=== PATIENT | female | born 1990 | race Caucasian/White ===

== ENCOUNTER 2016-12-06 13:44 | Emergency (ER) | payer OTHER ==
[~2016-12-06] VITALS: Ht 157.5 cm; Wt 78.8 kg
[2016-12-06] MEDS ORDERED: PREDNISONE50 MG PO (14:32)
[2016-12-06 14:45] VITALS: BP 137/74
== END 2016-12-06 14:53 | disposition home or self-care (01) ==
LOC: EME 13:44
DX: O99.712 Diseases of the skin and subcutaneous tissue complicating pregnancy, second trimester (principal); L27.2 Dermatitis due to ingested food; O99.342 Other mental disorders complicating pregnancy, second trimester; F32.9 Major depressive disorder, single episode, unspecified; F41.9 Anxiety disorder, unspecified; Z3A.20 20 weeks gestation of pregnancy; Z87.891 Personal history of nicotine dependence
CPT/HCPCS: 99281; 99284

== ENCOUNTER 2016-12-17 21:00 | Emergency (ER) | payer OTHER ==
[~2016-12-17] VITALS: Ht 157.5 cm; Wt 79.6 kg
[~2016-12-17 21:00] MED LIST: PREDNISONE50 MG PO
[2016-12-17] MEDS ORDERED: ZITHROMAX250 MG PO (23:03)
[2016-12-17] MEDS ORDERED: DELTASONE20 M1 PO (23:03)
[2016-12-17] MEDS ORDERED: PROAIR HFA8.5 GM IH (23:03)
[2016-12-17 23:15] VITALS: BP 119/90
== END 2016-12-17 23:16 | disposition home or self-care (01) ==
LOC: EME 21:00
DX: O99.512 Diseases of the respiratory system complicating pregnancy, second trimester (principal); J40 Bronchitis, not specified as acute or chronic; Z3A.21 21 weeks gestation of pregnancy; Z87.891 Personal history of nicotine dependence
CPT/HCPCS: 93005; 94664; 99281; 99283

== ENCOUNTER 2017-04-23 18:15 | Outpatient (CLI) | payer OTHER ==
[~2017-04-23 18:15] MED LIST changes: +DELTASONE20 M1 PO; +FERROUS SULFAT325 MG PO; +PRENATAL TABLE1 EAC3 PO; +PROAIR HFA8.5 GM IH; +ZITHROMAX250 MG PO
[2017-04-23 18:39] VITALS: BP 117/82
[2017-04-23 19:43] VITALS: BP 124/80
[2017-04-23 20:06] LABS: BASOPHIL (%) 0.3 % (0-1); EOSINOPHIL (%) 0.4 % (0-5); HEMATOCRIT 32.3 % (36.0-46.0); HEMOGLOBIN 10.9 G/DL (11.9-15.5); IMMATURE GRANULOCYTE (%) 0.4 % (0.0-0.7); LYMPHOCYTE (%) 16.5 % (15-42); LYMPHOCYTE COUNT 1.7 K/uL (1.0-2.8); MCH 31.3 PG (29.0-34.0); MCHC 33.7 G/DL (30.0-36.0); MCV 92.8 FL (83-99); MONOCYTE (%) 5.6 % (3-12); MONOCYTE COUNT 0.6 K/uL (0-0.8); NEUTROPHIL (%) 76.8 % (45-76); PLATELET COUNT 256 K/uL (156-360); RBC DIS.WIDTH-CV 13.1 % (11.8-14.6); RBC DIS.WIDTH-SD 44.5 % (39-53); RED BLOOD COUNT 3.48 M/uL (3.80-5.20); WHITE BLOOD COUNT 10.4 K/uL (4.1-10.2)
[2017-04-23 20:16] LABS: ALBUMIN 3.5 G/DL (3.2-4.8); CHLORIDE 105 MEQ/L (99-109); SODIUM 135 MEQ/L (136-147); TOTAL BILIRUBIN 0.3 MG/DL (0.0-1.0)
[2017-04-23 20:21] LABS: ALKALINE PHOSPHATASE 143 IU/L (3-129); ALT (GPT) 11 IU/L (3-49); AST (GOT) 17 IU/L (2-34); CREATININE 0.5 MG/DL (0.6-1.3); GFR ESTIMATE (CALCULATED) > 59 mL/min/; GLUCOSE 73 mg/dL (70-99); UREA NITROGEN (BUN) 13 mg/dL (9-23)
[2017-04-23 20:39] LABS: UR CREATININE CONCENTRATION 38.7 MG/DL
[2017-04-23 20:47] VITALS: BP 119/72
== END 2017-04-23 21:30 | disposition home or self-care (01) ==
LOC: LDRP-OP 18:15 → 2WEST 18:17
PROVIDERS: Nurse Practitioner
DX: O36.8130 Decreased fetal movements, third trimester, not applicable or unspecified (principal); O13.3 Gestational [pregnancy-induced] hypertension without significant proteinuria, third trimester; O99.343 Other mental disorders complicating pregnancy, third trimester; F41.9 Anxiety disorder, unspecified; O99.333 Smoking (tobacco) complicating pregnancy, third trimester; F17.200 Nicotine dependence, unspecified, uncomplicated; Z22.330 Carrier of Group B streptococcus; Z3A.38 38 weeks gestation of pregnancy
CPT/HCPCS: 59025; 80053; 82570; 84156; 85025; G0378

== ENCOUNTER 2017-04-25 10:13 | Outpatient (CLI) | payer OTHER ==
[~2017-04-25] VITALS: Ht 157.5 cm; Wt 83.2 kg
[2017-04-25 10:27] VITALS: BP 117/77
== END 2017-04-25 11:45 | disposition home or self-care (01) ==
LOC: LDRP-OP 10:13 → 2WEST 10:14 → LDRP-OP 12:21
DX: O26.893 Other specified pregnancy related conditions, third trimester (principal); R03.0 Elevated blood-pressure reading, without diagnosis of hypertension; Z3A.39 39 weeks gestation of pregnancy
CPT/HCPCS: 59025; G0378

== ENCOUNTER 2017-04-28 13:00 | Outpatient (CLI) | payer OTHER ==
[2017-04-28 13:21] VITALS: BP 120/78
[2017-04-28] MEDS ORDERED: ZOFRAN8 MG PO (13:28)
[2017-04-28 13:54] VITALS: BP 113/76
[2017-04-29] MEDS ORDERED: IBUPROFEN800 MG PO (03:04)
== END 2017-04-28 14:20 | disposition home or self-care (01) ==
LOC: LDRP-OP 13:00 → 2WEST 13:01 → LDRP-OP 06-02 12:00
DX: O47.1 False labor at or after 37 completed weeks of gestation (principal); Z3A.39 39 weeks gestation of pregnancy
CPT/HCPCS: 59025; G0378

== ENCOUNTER 2017-04-28 20:08 | Inpatient (IN) | payer OTHER ==
[~2017-04-28] VITALS: Ht 157.5 cm; Wt 83.2 kg
[2017-04-28] VITALS (10 sets, daily range): BP systolic 102–131; BP diastolic 61–82
[~2017-04-28 20:08] MED LIST changes: +ZOFRAN8 MG PO
[2017-04-28 21:00] LABS: BASOPHIL (%) 0.2 % (0-1); EOSINOPHIL (%) 0.6 % (0-5); EOSINOPHIL COUNT 0.1 K/uL (0-0.3); HEMATOCRIT 32.7 % (36.0-46.0); HEMOGLOBIN 11.2 G/DL (11.9-15.5); IMMATURE GRANULOCYTE (%) 0.3 % (0.0-0.7); LYMPHOCYTE (%) 10.1 % (15-42); LYMPHOCYTE COUNT 1.4 K/uL (1.0-2.8); MCH 32.1 PG (29.0-34.0); MCHC 34.3 G/DL (30.0-36.0); MCV 93.7 FL (83-99); MONOCYTE (%) 6.5 % (3-12); MONOCYTE COUNT 0.9 K/uL (0-0.8); NEUTROPHIL (%) 82.3 % (45-76); NEUTROPHIL COUNT 11.7 K/uL (1.8-6.4); PLATELET COUNT 252 K/uL (156-360); RBC DIS.WIDTH-CV 13.2 % (11.8-14.6); RBC DIS.WIDTH-SD 44.8 % (39-53); RED BLOOD COUNT 3.49 M/uL (3.80-5.20); WHITE BLOOD COUNT 14.2 K/uL (4.1-10.2)
[2017-04-29] VITALS (11 sets, daily range): BP systolic 104–130; BP diastolic 56–78
[2017-04-29] MEDS ORDERED: IBUPROFEN800 MG PO (03:04)
[2017-04-30 07:42] VITALS: BP 110/63
[2017-04-30 14:46] VITALS: BP 124/71
[2017-05-01 08:04] VITALS: BP 119/73
== END 2017-05-01 12:50 | disposition home or self-care (01) | DRG 775 ==
LOC: LDRP-OP 20:08 → 2WEST 20:09 → LDRP-OP 06-02 14:31
PROVIDERS: Nurse Practitioner
DX: O13.4 Gestational [pregnancy-induced] hypertension without significant proteinuria, complicating childbirth (principal); O36.5930 Maternal care for other known or suspected poor fetal growth, third trimester, not applicable or unspecified; O99.824 Streptococcus B carrier state complicating childbirth; O69.81X0 Labor and delivery complicated by cord around neck, without compression, not applicable or unspecified; O99.214 Obesity complicating childbirth; E66.9 Obesity, unspecified; O99.334 Smoking (tobacco) complicating childbirth; F17.210 Nicotine dependence, cigarettes, uncomplicated; Z3A.39 39 weeks gestation of pregnancy; Z37.0 Single live birth; Z68.32 Body mass index [BMI] 32.0-32.9, adult
CPT/HCPCS: 59025; 83030; 85025; 86850; 86870; 86900; 86901; C1755; G0378; J2540; J2790; J3010; J7120